=== PATIENT | female | born 1955 | race Caucasian/White ===

== ENCOUNTER → 2018-01-01 17:07 | Outpatient (CLI) | payer OTHER, SELFPAY ==
--- NOTE | 2018-01-01 17:07 | DT_ITS ---
This patient was seen during an EMR downtime January 01, 2018 - January 08, 2018. This patient may have a combination of paper and electronic documentation or all paper documentation. All documentation is viewable within the e-chart portion of [employer] for each patient visit.
--- NOTE | 2018-01-01 17:10 | RAD_ITS ---
STUDY: X-RAY - RIGHT KNEE REASON FOR EXAM: Female, 62 years old. Right knee pain. TECHNIQUE: 5 view(s) of the knee. COMPARISON: None. FINDINGS: There is generalized osteopenia. Normal visualized distal femur. Normal visualized proximal tibia and fibula. Normal proximal tibiofibular articulation. There is moderate arthrosis of the medial compartment, severe arthrosis of the lateral compartment and moderate to severe arthrosis of the patellofemoral compartment. The soft tissue structures are unremarkable. RAD/Knee 4 or More Views IMPRESSION: Osteopenia with tricompartmental arthrosis as described. Electronically Signed: Og Luciano MD at 17:54 EDT , Service support ,
--- NOTE | 2018-01-01 17:10 | RAD_ITS ---
STUDY: X-RAY - LUMBAR SPINE REASON FOR EXAM: Female, 62 years old. Leg pain. TECHNIQUE: 5 view(s) of the lumbar spine were obtained. COMPARISON: None FINDINGS: There is mild generalized osteopenia. Normal lumbar lordosis. There is no substantial scoliosis. There is bilateral pars interarticularis defects at L5-S1 with a grade 4 spondylolisthesis of L5 on S1. Normal vertebral bodies and endplates. There is marked intervertebral disc space narrowing at L5-S1. The soft tissue structures are unremarkable. RAD/L/S Spine Min 4 Views IMPRESSION: Osteopenia with grade 4 spondylolisthesis of L5 on S1. No acute pathology. Electronically Signed: Og Luciano MD at 17:53 EDT , Service support ,
--- NOTE | 2018-01-01 17:10 | RAD_ITS ---
STUDY: X-RAY - LEFT KNEE REASON FOR EXAM: Female, 62 years old. Left knee pain. TECHNIQUE: 4 view(s) of the knee. COMPARISON: None. FINDINGS: There is generalized osteopenia. Normal visualized distal femur. Normal visualized proximal tibia and fibula. Normal proximal tibiofibular articulation. There is moderate arthrosis of the medial compartment, severe arthrosis of the lateral compartment and moderate arthrosis of the patellofemoral compartment. There is a joint effusion with calcific debris in the suprapatellar pouch. The soft tissue structures are otherwise unremarkable. RAD/Knee 4 or More Views IMPRESSION: Osteopenia with tricompartmental arthrosis. Small joint effusion with calcific debris. Electronically Signed: Og Luciano MD at 17:54 EDT , Service support ,
== END ==
LOC: MTLAB 01-04 09:26 → MTRAD 01-04 09:27
PROVIDERS: Family Provider Family Medicine; PCP Family Medicine; Visit Provider Family Medicine
DX: M79.606 Pain in leg, unspecified (principal); M25.561 Pain in right knee; M25.562 Pain in left knee
CPT/HCPCS: 72110; 73564

== ENCOUNTER → 2020-02-06 | Outpatient (CLI) | payer OTHER, SELFPAY ==
[2016-07-22 16:44] VITALS: BMI 26.5
--- NOTE | 2020-02-06 12:00 | RAD_ITS ---
STUDY: X-RAY - RIGHT WRIST REASON FOR EXAM: Female, 64 years old. Fall, right wrist pain TECHNIQUE: 3 view(s) of the wrist were obtained. COMPARISON: None. FINDINGS: Comment fracture of the distal radius with extension of the articular surface. There is depression of the articular surface of the radius measuring 2.8 mm. Normal radiocarpal articulation. Normal distal radioulnar articulation. Normal carpal bones. Normal carpal articulations. Normal carpometacarpal articulation of the thumb. Normal second through fifth carpometacarpal articulations. Normal visualized metacarpal bones. Soft tissue swelling. RAD/Wrist min 3 Views IMPRESSION: Comminuted depressed fracture of the distal radius. Soft tissue swelling. Electronically Signed: Cecil Chapin, at 12:15 EDT , Service support ,
== END | disposition home or self-care (01) ==
PROVIDERS: PCP Family Medicine; Referring Provider Family Medicine; Visit Provider Family Medicine
DX: M25.531 Pain in right wrist (principal)
CPT/HCPCS: 73110

== ENCOUNTER → 2022-07-14 | Outpatient (CLI) | payer MEDICARE, SELFPAY ==
[2022-07-14 12:25] LABS: Anion Gap 6 (5-15); BUN 17 mg/dL (7-18); BUN/Creat Ratio 29.1 RATIO (10-20); Calcium,Total 9.9 mg/dL (8.5-10.1); Chloride 106 mmol/L (98-107); Cholesterol 202 mg/dL (200); Creatinine, Serum 0.58 mg/dL (0.55-1.02); EST Glomerular Filtration Rate 110 mL/min (>60); Est Glom Filt Rate - Afr Amer 133 mL/min (>60); Glucose 97 mg/dL (74-106); High Density Lipoprotein 44 mg/dL; Potassium 4.4 mmol/L (3.5-5.1); Sodium Level 139 mmol/L (136-145); Triglycerides 157 mg/dL; Very Low Density Lipoprotein 31 mg/dL (5-40)
== END | disposition home or self-care (01) ==
PROVIDERS: PCP Family Medicine; Referring Provider Family Medicine; Visit Provider Family Medicine
DX: I10 Essential (primary) hypertension (principal)
CPT/HCPCS: 36415; 80048; 80061

== ENCOUNTER → 2023-05-30 | Outpatient (CLI) | payer MEDICARE, SELFPAY ==
--- NOTE | 2023-05-30 10:23 | BI_ITS ---
MAMMOGRAPHY - BILATERAL SCREENING REASON FOR EXAM: Female, 68 years old. Routine annual screening examination. PERTINENT HISTORY: Sister with breast cancer. TECHNIQUE: Digital bilateral breast monae (3D mammographic acquisition) in the CC and MLO projections. 2-D mediolateral oblique (MLO) and craniocaudad (CC) views of both breasts were obtained. CAD: Full Field Digital Mammography with Computer Added Detection was performed. COMPARISON: None. Baseline examination. FINDINGS: Breast Composition: There are scattered areas of fibroglandular density. Scattered bilateral calcifications. No focal cluster is seen. There is a 1.2 cm x 1.1 cm well-defined nodule in the central medial aspect of the right breast. Correlation with ultrasound is recommended for further evaluation. No other significant abnormalities are identified. BI/SCRN MAMM (CAD)W/MONAE BILAT IMPRESSION: 1.2 cm x 1.1 cm well-defined nodule in the central medial aspect of the right breast. Correlation with ultrasound is recommended. ASSESSMENT CATEGORY: BIRADS Category 0: Incomplete. Need additional imaging evaluation. A letter regarding these results will be sent to the patient by the facility within 30 days. Approximately 10% of breast cancers are not detected by mammography. A normal mammogram should not delay biopsy of a clinically suspicious abnormality. [id number] Electronically Signed: Cecil Chapin MD at 12:44 EDT ,
--- NOTE | 2023-05-30 10:30 | BD_ITS ---
STUDY: DUAL ENERGY X-RAY ABSORPTIOMETRY / DXA REASON FOR EXAM: Female, 68 years old. [id number] TECHNIQUE: Bone Mineral Density (BMD) measurements of lumbar spine and bilateral hips were obtained. COMPARISON: None. FINDINGS: Lumbar Spine (L1-L4): g/cm2 (0.890) / T-score (-1.2) / Z-score (0.6) Findings are suggestive of osteopenia with a low fracture risk. Left Femur Total: g/cm2 (0.801) / T-score (-1.2) / Z-score (0.1) Left Femoral Neck: g/cm2 (0.607) / T-score (-2.2) / Z-score (-0.6) Right Femur Total: g/cm2 (0.867) / T-score (-0.6) / Z-score (0.7) Right Femoral Neck: g/cm2 (0.666) / T-score (-1.7) / Z-score (-0.1) BD/Dexa Bone Density Study IMPRESSION: The patient is considered osteopenic as outlined below according to World Ma[employer] Organization (WHO) criteria with a high fracture risk. Reference Information: The T-score is the number of standard deviations above or below the standard which is normal for young adults at their peak bone mineral density. The World Health Organization (WHO) interprets the T-scores as follows: Above -1 Normal bone density Between -1 and -2.5 Osteopenia Equal to / or below -2.5 Osteoporosis As a practical clinical guideline, osteopenia may be graded as follows: Mild -1 through -1.5 Moderate -1.6 through -2.0 Severe -2.1 through -2.4 The Z-score is the number of standard deviations above or below age-matched controls. A Z-score of less than -1.5 would be considered abnormal. References: 1. NIH Osteoporosis and Related Bone Diseases www osteo.org 2. International Society for Clinical Densitometry www iscd.org 3. National Osteoporosis Foundation www nof.org Electronically Signed: Cecil Chapin MD at 11:14 EDT ,
== END | disposition home or self-care (01) ==
PROVIDERS: PCP Family Medicine; Visit Provider Family Medicine
DX: Z12.31 Encounter for screening mammogram for malignant neoplasm of breast (principal); Z80.3 Family history of malignant neoplasm of breast; M81.0 Age-related osteoporosis without current pathological fracture
CPT/HCPCS: 77063; 77067; 77080

== ENCOUNTER → 2023-06-01 | Outpatient (CLI) | payer MEDICARE, SELFPAY ==
--- NOTE | 2023-06-01 10:49 | US_ITS ---
STUDY: ULTRASOUND BREAST - RIGHT REASON FOR EXAM: Female, 68 years old. Abnormal screening mammogram. TECHNIQUE: Axial and longitudinal images of the RIGHT breast were performed with a high resolution ultrasound transducer. # OF IMAGES: 30 COMPARISON: Comparison is made with prior mammogram dated May 30, 2023. FINDINGS: RIGHT Breast: The mammographic abnormality corresponds to a 1.2 cm x 1 cm x 1 cm hypoechoic lobulated nodule at the 2:00 position in the breast at 4 cm from the nipple. There is posterior acoustical shadowing. Biopsy recommended. US/Breast Limited Unilateral IMPRESSION: 1.2 cm x 1 cm x 1 cm hypoechoic lobulated nodule at the 2:00 position of the breast at 4 cm from the nipple. Biopsy recommended. ASSESSMENT CATEGORY: BIRADS Category 4: Suspicious - Biopsy Should Be Considered. A letter regarding these results will be sent to the patient by the facility within 30 days. Electronically Signed: Cecil Chapin MD at 12:57 EDT ,
== END | disposition home or self-care (01) ==
LOC: OPUS 10:48
PROVIDERS: PCP Family Medicine; Referring Provider Family Medicine; Visit Provider Family Medicine
DX: R92.8 Other abnormal and inconclusive findings on diagnostic imaging of breast (principal)
CPT/HCPCS: 76642

== ENCOUNTER → 2023-06-12 | Outpatient (CLI) | payer MEDICARE, SELFPAY ==
--- NOTE | 2023-06-12 10:00 | BRBX_PTH ---
PATIENT: MARVEL COURTNEY LOC: [facility] U#:[id number] AGE/SX: 68/F ROOM: RE06/12/[address]: Dr. Nasrin Jasmine MD : 1955 BED: DIS: 06/12/2023 SPEC #: [id number] RECD: 06/12/23 16:01 STATUS: CARY WILD #: [id number] MYESHA: 06/12/23 10:[address]: Nasrin Jasmine DEPT: SURGICAL PATHOLOGY RECD BY: Nina Cleary ENTERED: 06/13/23 10:47 SP TYPE: BREAST BX OTHR DR: Dr. Jorge Lehman MD Tissues: Right breast, NOS Procedures: Surgery Specimen Level IV HEADER OPERATION: Biopsy of right breast nodule PRE-OP DIAGNOSIS: Right breast nodule TISSUE SUBMITTED: Right breast 2 o'clock, 4.0 cm from nipple MICROSCOPIC DIAGNOSIS Right breast at 2 o'clock, needle core biopsy: Fibroadenoma. AM:travis 06/14/2023 MICROSCOPIC DESCRIPTION Slides are reviewed. GROSS DESCRIPTION Received in fixative is one container labeled with the patient's name and designated right breast nodule. The specimen consists of multiple irregular and elongated fragments of molina tissue that in aggregate measure 1.2 x 1.0 x 0.1 cm. The specimen is totally submitted in one cassette. / AM:travis 06/13/2023 TC:5 CPT: 08823
== END | disposition home or self-care (01) ==
LOC: LABSPEC 16:09
PROVIDERS: PCP Family Medicine; Referring Provider Surgery; Visit Provider Surgery
DX: D24.1 Benign neoplasm of right breast (principal)
CPT/HCPCS: 88305

== ENCOUNTER → 2024-02-28 | Outpatient (CLI) | payer MEDICARE, SELFPAY ==
[2024-02-28 13:01] LABS: Anion Gap 7 (5-15); BUN 13 mg/dL (7-18); BUN/Creat Ratio 20.2 RATIO (10-20); Calcium,Total 9.8 mg/dL (8.5-10.1); Chloride 107 mmol/L (98-107); Creatinine, Serum 0.64 mg/dL (0.55-1.02); EST Glomerular Filtration Rate 98 mL/min (>60); Est Glom Filt Rate - Afr Amer 118 mL/min (>60); Glucose 103 mg/dL (74-106); Potassium 4.2 mmol/L (3.5-5.1); Sodium Level 140 mmol/L (136-145)
== END | disposition home or self-care (01) ==
LOC: MFPLAB 09:51
PROVIDERS: PCP Family Medicine; Visit Provider Family Medicine
DX: I10 Essential (primary) hypertension (principal)
CPT/HCPCS: 36415; 80048

== ENCOUNTER → 2025-06-17 | Outpatient (CLI) | payer MEDICARE, SELFPAY ==
[2025-06-17 12:57] LABS: Anion Gap 11 (5-15); BUN 11 mg/dL (4-19); BUN/Creat Ratio 18.1 RATIO (10-20); Calcium,Total 9.9 mg/dL (7.6-11.0); Carbon Dioxide 28.4 mmol/L (21.0-32.0); Chloride 102 mmol/L (98-108); Glucose 104 mg/dL (70-99); Potassium 4.1 mmol/L (3.3-5.1)
== END | disposition home or self-care (01) ==
LOC: MTLAB 09:16
PROVIDERS: PCP Family Medicine; Referring Provider Family Medicine; Visit Provider Family Medicine
DX: I10 Essential (primary) hypertension (principal)
CPT/HCPCS: 36415; 80048